=== PATIENT | female | born 1970 | race American Indian/Alaskan Native ===

== ENCOUNTER 2018-03-30 18:26 | Emergency (ER) | payer OTHER ==
[2018-03-30] MEDS ORDERED: ASPIRIN PO ONE (18:53)
[2018-03-30 19:28] LABS: Basophils % (Auto) 0.4 % (0.0-1.8); Eosinophils % (Auto) 0.3 % (0.0-4.3); Hemoglobin 14.2 gm/dl (10.1-14.3); Lymphocytes # (Auto) 3.8 K/mm3 (1.2-5.4); Lymphocytes % (Auto) 33.8 % (13.4-35.0); Mean Corpuscular HGB Conc 34 % (30-34); Mean Corpuscular Hemoglobin 32 pg (28-32); Mean Corpuscular Volume 94 fl (79-97); Monocytes # (Auto) 0.6 K/mm3 (0.0-0.8); Platelet Count 251 K/mm3 (140-440); Red Blood Count 4.47 M/mm3 (3.65-5.03); Red Cell Distribution Width 13.8 % (13.2-15.2)
[2018-03-30 19:56] LABS: BUN/Creatinine Ratio 15; Blood Urea Nitrogen 9 mg/dL (7-17); Calcium 9.7 mg/dL (8.4-10.2); Hemolysis Index 6
--- NOTE | 2018-03-30 20:24 | XRay Report ---
FINAL REPORT EXAM: XR CHEST ROUTINE 2V HISTORY: PRODUCTIVE COUGH AND SOB TECHNIQUE: PA and lateral views of the chest PRIORS: None. FINDINGS: Lines, tubes, and devices: N/A Lungs and pleura: Trachea is normal in position. Lungs are clear of infiltrate, pleural effusion, vascular congestion, or pneumothorax. Cardiomediastinal silhouette: Cardiac and mediastinal silhouettes are unremarkable. Other: Bony structures are intact. IMPRESSION: No acute cardiopulmonary process seen.
--- NOTE | 2018-03-31 02:03 | Emergency Department Report ---
ED Chest Pain HPI - General Chief Complaint: Chest Pain Stated Complaint: N/V CHEST PAIN Time Seen by Provider: 03/31/18 01:40 Source: patient Mode of arrival: Ambulatory Limitations: No Limitations - History of Present Illness Initial Comments: 47-year-old female presents to the emergency department via EMS from work with a complaint of having some type of event around 4:15 this afternoon in which she started becoming very dizzy, diaphoretic and had some generalized tightness to the chest, upper back and the left arm. Patient says that she was at work when this started and she sat down and used a cool compress and EMS was called. She did not take anything received anything for her symptoms prior to presentation. Since patient has been in the emergency department she says that all of her symptoms have since resolved. She denied any shortness of breath, fever. She says that she had an episode of coughing and an episode of vomiting yesterday. She has a primary care physician, Dr. Mitchell. Patient does not currently have a ballet dancer but says that she has had a negative stress test in the last few years. The patient is a tobacco smoker. Severity scale (0 -10): 0 - Related Data Allergies Allergy/AdvReac Type Severity Reaction Status Date / Time sulfamethoxazole Allergy Unknown Verified 03/30/18 18:51 [From Bactrim] trimethoprim [From Bactrim] Allergy Unknown Verified 03/30/18 18:51 Heart Score - HEART Score History: Slightly suspicious EKG: Normal Age: 45-65 Risk factors: 1-2 risk factors Troponin: < normal limit HEART Score: 2 - Critical Actions Critical Actions: 0-3 pts:0.9-1.7%risk of adverse cardiac event.Candidate for discharge ED Review of Systems ROS: Stated complaint: N/V CHEST PAIN Other details as noted in HPI Comment: All other systems reviewed and negative Constitutional: diaphoresis. denies: chills, fever Eyes: denies: eye pain, eye discharge, vision change ENT: denies: ear pain, throat pain Respiratory: cough. denies: shortness of breath Cardiovascular: chest pain. denies: edema Gastrointestinal: denies: abdominal pain, diarrhea Genitourinary: denies: urgency, dysuria, discharge Musculoskeletal: back pain. denies: arthralgia Skin: denies: rash, lesions Neurological: denies: headache, weakness, paresthesias ED Past Medical Hx - Past Medical History Previous Medical History?: No Additional medical history: left knee - Social History Smoking Status: Current Every Day Smoker Substance Use Type: Alcohol ED Physical Exam - General Limitations: No Limitations - Other Other exam information: GENERAL: The patient is well-developed well-nourished. HENT: Normocephalic. Atraumatic. Patient has moist mucous membranes. EYES: Extraocular motions are intact. Pupils equal reactive to light bilaterally. NECK: Supple. Trachea is midline. CHEST/LUNGS: Clear to auscultation. There is no respiratory distress noted. HEART/CARDIOVASCULAR: Regular. There is no tachycardia. There is no murmur. ABDOMEN: Abdomen is soft, nontender. Patient has normal bowel sounds. There is no abdominal distention. SKIN: Skin is warm and dry. NEURO: The patient is awake, alert, and oriented. The patient is cooperative. The patient has no focal neurologic deficits. The patient has normal speech. MUSCULOSKELETAL: There is no tenderness or deformity. There is no limitation range of motion. There is no evidence of acute injury. BACK: No midline lumbar or thoracic tenderness to palpation, step-off or deformity. ED Course Vital Signs 03/30/18 03/31/18 03/31/18 18:42 00:04 02:00 Temperature 98.4 F 97.9 F 98.1 F Pulse Rate 60 55 L 60 Respiratory 18 18 20 Rate Blood Pressure 119/76 130/84 Blood Pressure 132/78 [Left] O2 Sat by Pulse 100 98 98 Oximetry 03/31/18 02:21 Temperature Pulse Rate Respiratory 20 Rate Blood Pressure Blood Pressure [Left] O2 Sat by Pulse 98 Oximetry JAROD score - Jarod Score Age > 65: (0) No Aspirin use within the Past 7 Days: (0) No 3 or more CAD Risk Factors: (0) No 2 or more Angina events in past 24 hrs: (0) No Known CAD with more than 50% Stenosis: (0) No Elevated Cardiac Markers: (0) No ST Deviation Greater than 0.5mm: (0) No JAROD Score: 0 ED Medical Decision Making - Lab Data Result diagrams: 03/30/18 19:01 03/30/18 19:01 - EKG Data -: EKG Interpreted by [facility] EKG shows normal: sinus rhythm, axis, intervals, QRS complexes, ST-T waves Rate: normal - EKG Data When compared to previous EKG there are: previous EKG unavailable Interpretation: normal EKG - Radiology Data Radiology results: image reviewed interpreted by me: Chest x-ray does not show any acute process. There are no pleural effusions, obvious pneumonia and there is no pneumothorax. - Medical Decision Making Wells' Criteria for DVT RESULT SUMMARY: 0 points Low risk group for DVT. Unlikely according to Wells DVT studies. INPUTS: Active cancer > 0 = No Bedridden recently >3 days or major surgery within four weeks > 0 = No Calf swelling >3 cm compared to the other leg > 0 = No Collateral (nonvaricose) superficial veins present > 0 = No Entire leg swollen > 0 = No Localized tenderness along the deep venous system > 0 = No Pitting edema, confined to symptomatic leg > 0 = No Paralysis, paresis, or recent plaster immobilization of the lower extremity > 0 = No Previously documented DVT > 0 = No Alternative diagnosis to DVT as likely or more likely > 0 = No This patient had some chest and back tightness as well as some discomfort to the left arm around 4:00 this afternoon. All of her symptoms have resolved at this time and she is asking for discharge home. Her EKG is normal without ST elevation [place], ischemia or dysrhythmia. Labs have been unremarkable including no signs of infection, no electrolyte abnormalities, renal insufficiency or glucose abnormalities and she has negative troponins 3. Chest x-ray does not show any pneumonia, pleural effusions, pneumothorax or any other acute process. Her vital signs are stable throughout her ED course. She is low on the heart score criteria. She has a JAROD score of 0. She is low on the well's criteria and negative on the pulmonary embolus rule out criteria. She has good follow- up with primary care. She has been given a referral for cardiology. She has been instructed to return to the emergency department immediately with any return of her symptoms with any acute distress. She understands and agrees to the plan. - Differential Diagnosis [place], Costochondritis, Dysrythmia, Pnuemonia Critical Care Time: No Critical care attestation.: If time is entered above; I have spent that time in minutes in the direct care of this critically ill patient, excluding procedure time. ED Disposition Clinical Impression: Dizziness Chest pain Qualifiers: Chest pain type: unspecified Qualified Code(s): R07.9 - Chest pain, unspecified Back pain Qualifiers: Back pain location: thoracic back pain Chronicity: acute Back pain laterality: unspecified Qualified Code(s): M54.6 - Pain in thoracic spine Disposition: TO HOME OR SELFCARE Is pt being admited?: No Condition: Stable Instructions: Chest Pain (ED), Dizziness (ED), Back Pain (ED) Additional Instructions: Please follow-up with your primary care physician in the next few days. Return to the emergency department immediately with any return of your chest pain, worsening of your symptoms, or any acute distress. I have given a referral for a local ballet dancer, Dr. Bustamante, to follow up regarding the previous chest tightness. Referrals: PRIMARY CARE, [Primary Care Provider] - JYOTI GARCIA MD [Staff Physician] - 2-3 Days Forms: Accompanied Note, Work/School Release Form(ED) Time of Disposition: 02:04
[2018-03-31 02:21] VITALS: BP 132/78
== END 2018-03-31 02:24 | disposition home or self-care (01) ==
LOC: ED 18:26
DX: M54.6 Pain in thoracic spine (principal); R07.9 Chest pain, unspecified; R42 Dizziness and giddiness; F17.200 Nicotine dependence, unspecified, uncomplicated
CPT/HCPCS: 36415; 71046; 80048; 84484; 85025; 93005; 93010